=== PATIENT | female | born 1970 | race Caucasian/White ===

== ENCOUNTER 2022-02-04 08:58 | Observation (INO) | payer OTHER ==
[~2022-02-04] VITALS: Ht 177.8 cm; Wt 107.5 kg
[~2022-02-04 08:58] MED LIST: CYCL-707; HEPARIN SOD (PORCINE) 5000UNITS/ML 1ML VIAL/SYRINGE SQ ONE; ceFAZolin SOD 2 GM in IV 1 EA IV ONE
[2022-02-04] MEDS ORDERED: dexameTHASONE 4 MG/ML 1ML VIAL (J1100 PER 1MG) As Ordered ONE (10:00)
[2022-02-04] MEDS ORDERED: ONDANSETRON 4MG 2ML VIAL As Ordered ONE (10:00)
[2022-02-04] MEDS ORDERED: fentaNYL 250 MCG/5 ML INJECTION As Ordered ONE (10:00)
[2022-02-04] MEDS ORDERED: LIDOCAINE 2% 100MG/5ML SDV (FOR ANES.) As Ordered ONE (10:00)
[2022-02-04] MEDS ORDERED: propofoL 200 MG/20 ML VIAL As Ordered ONE (10:00)
[2022-02-04] MEDS ORDERED: diphenhydrAMINE 50MG/ML VIAL (J1200) As Ordered ONE (10:00)
[2022-02-04] MEDS ORDERED: ROCURONIUM BROMIDE 50 MG/5 ML VIAL As Ordered ONE ×2 (10:00→13:55)
[2022-02-04] MEDS ORDERED: MIDAZOLAM INJ 2MG/2ML VIAL (J2250 PER 1MG) As Ordered ONE (10:01)
[2022-02-04] MEDS ORDERED: SCOPOLAMINE 1MG TRANSDERMAL PATCH TOP ONE (10:20)
[2022-02-04] MEDS ORDERED: LR 1,000 ML IV SCH ×2 (10:20→16:25)
[2022-02-04] MEDS ORDERED: BUPIVACAINE HCL 0.25% 10ML VIAL As Ordered ONE (12:18)
[2022-02-04] MEDS ORDERED: GENTAMICIN SULF 80MG/2ML VIAL As Ordered ONE (12:18)
[2022-02-04] MEDS ORDERED: BUPIVACAINE LIPOSOME/PF 1.3% 20ML VIAL (13.3MG/ML)(EXPAREL) As Ordered ONE (12:18)
[2022-02-04] MEDS ORDERED: LABETALOL 100MG/20ML VIAL As Ordered ONE (13:47)
[2022-02-04] MEDS ORDERED: ACETAMINOPHEN 1000MG 100ML IV BTL (OFIRMEV) (J0131 PER 10MG) As Ordered ONE (13:53)
[2022-02-04] MEDS ORDERED: SUGAMMADEX SODIUM 500 MG/5 ML VIAL (BRIDION) As Ordered ONE (13:58)
[2022-02-04] MEDS ORDERED: HYDROmorphone HCL 2MG/ML 1ML VIAL As Ordered ONE (13:59)
[2022-02-04] MEDS ORDERED: ePHEDrine SULFATE 25 MG/5 ML(5MG/ML) SYRINGE As Ordered ONE (14:09)
[2022-02-04] MEDS ORDERED: PHENYLephrine 500MCG 5ML (100MCG/ML) SYRINGE As Ordered ONE (14:09)
[2022-02-04] MEDS ORDERED: ONDANSETRON 4MG 2ML VIAL IV PRN ×2 (16:25→17:05)
[2022-02-04] MEDS ORDERED: fentaNYL 100 MCG/2 ML INJECTION IV PRN (16:25)
[2022-02-04] MEDS ORDERED: ACETAMINOPHEN TAB 650MG DOSE (2X325MG) PO PRN (17:05)
[2022-02-04] MEDS: oxyCODONE 5MG TAB PO PRN ×2 (17:21→17:55)
[2022-02-04] MEDS: HYDROMORPHONE HCL 0.5 MG/ 0.5 ML SYRINGE (J1170 PER 1) IV PRN ×2 (18:11→18:16)
[2022-02-04 18:50] VITALS: BP 152/71
[2022-02-04] MEDS: traMADol 50 MG TAB PO PRN (19:05)
[2022-02-04] MEDS: LR 1,000 ML IV SCH (19:06)
[2022-02-04 19:20] VITALS: BP 152/74
[2022-02-04] MEDS: ceFAZolin SOD 1 GM in D5W MINI-BAG PLUS 50 ML IV SCH (20:52)
[2022-02-04] MEDS: diphenhydrAMINE 25MG CAP PO PRN (20:53)
[2022-02-04] MEDS: PERCOCET 5MG/325MG TAB PO PRN (20:53)
[2022-02-04 21:08] VITALS: BP 140/76
[2022-02-04 22:00] VITALS: BP 155/74
[2022-02-05] MEDS: PERCOCET 5MG/325MG TAB PO PRN ×3 (01:18→11:07)
[2022-02-05 01:47] VITALS: BP 144/78
[2022-02-05] MEDS: ceFAZolin SOD 1 GM in D5W MINI-BAG PLUS 50 ML IV SCH (05:40)
[2022-02-05] MEDS: diphenhydrAMINE 25MG CAP PO PRN (05:41)
[2022-02-05 05:42] VITALS: BP 135/72
[2022-02-05] MEDS: LR 1,000 ML IV SCH (08:48)
[2022-02-05] MEDS: traMADol 50 MG TAB PO PRN (08:52)
[2022-02-05] MEDS ORDERED: OXYC1TAB23 PO (09:07)
[2022-02-05 10:00] VITALS: BP 136/64
== END 2022-02-05 14:02 | disposition home or self-care (01) ==
LOC: M SDC 08:58 → M MS5PR 08:59
PROVIDERS: ADMIT Plastic Surgery Surgery of the Hand; ATTEND Plastic Surgery Surgery of the Hand
DX: N62 Hypertrophy of breast (principal); N64.81 Ptosis of breast; M54.2 Cervicalgia; M54.6 Pain in thoracic spine; Z88.2 Allergy status to sulfonamides
CPT/HCPCS: 19318; 88305; 96365; 96376; C9290; J0131; J0690; J1100; J1170; J1200; J1580; J1644; J2250; J2370; J2405; J3010

== ENCOUNTER → 2024-01-31 | Outpatient (REF) ==
[~2024-01-31] MED LIST changes: -HEPARIN SOD (PORCINE) 5000UNITS/ML 1ML VIAL/SYRINGE SQ ONE; +OXYC1TAB23 PO; -ceFAZolin SOD 2 GM in IV 1 EA IV ONE
== END ==
LOC: M EMP 08:36
PROVIDERS: ATTEND Family Medicine
DX: Z11.52 Encounter for screening for COVID-19 (principal)

== ENCOUNTER → 2025-04-11 | Outpatient (REF) ==
[2025-04-11 08:02] LABS: SOFIA COVID ANTIGEN NEGATIVE (NEGATIVE)
== END ==
LOC: M EMP 07:34
PROVIDERS: ATTEND Family Medicine
DX: Z01.89 Encounter for other specified special examinations (principal)